=== PATIENT | male | born 1995 | race African-American/Black ===

== ENCOUNTER 2025-08-23 17:09 | Emergency (ER) | payer OTHER ==
[~2025-08-23] VITALS: Ht 172.7 cm; Wt 65.9 kg
[2025-08-23 18:18] VITALS: TEMP 98.4
[2025-08-23] MEDS: IBUPROFEN 600 MG TABLET PO ONE (19:39)
[2025-08-23] MEDS: HYDROCODONE/ACETAMINOPHEN 5-325 MG TABLET PO ONE (19:40)
[2025-08-23 23:00] VITALS: BP 138/88; PULSE 72; RESP 18; O2SAT 99
[2025-08-23] MEDS: BACITRACIN 0.9 GM PACKET OINTMENT TP ONE (23:25)
[2025-08-23] MEDS: PERTUSS(ACELL),DIPH,TET/PF 0.5 ML SYRINGE [ADULT] IM. ONE (23:25)
== END 2025-08-23 23:50 ==
LOC: EMS 17:09
DX: S01.81XA Laceration without foreign body of other part of head, initial encounter (principal); S50.11XA Contusion of right forearm, initial encounter; S50.12XA Contusion of left forearm, initial encounter; Y08.89XA Assault by other specified means, initial encounter; Y93.89 Activity, other specified; Y92.89 Other specified places as the place of occurrence of the external cause; Y99.8 Other external cause status
CPT/HCPCS: 70450; 70486; 90471; 90715; 99285